=== PATIENT | male | born 1965 | race Hispanic/Latino ===

== ENCOUNTER 2017-12-06 17:42 | Emergency (ER) | payer SELFPAY ==
--- NOTE | 2017-12-06 19:17 | Emergency Department Report ---
Chief Complaint: Urogenital-Male Stated Complaint: GENITAL BLEEDING Time Seen by Provider: 12/06/17 19:05 - HPI History of Present Illness: This is a 52-year-old male with past medical history of hypertension diabetes resented the ER with penile permit drainage, irritation and crusting with slight bleeding 1 month. Patient stated that he's been doing [id number]-[id number] remedies with bacitracin and washing it with soap and water with no relief. Patient denies following up with a primary care doctor. Patient denies any other symptoms. Denies any fever, chills, nausea vomiting chest pressure. Denies any abdominal pain. Patient stated he has normal voiding. Patient denies any drug allergies. - Exam Vital Signs: Vital Signs 12/06/17 17:47 Temperature 98.5 F Pulse Rate 105 H Respiratory 22 Rate Blood Pressure 167/97 O2 Sat by Pulse 96 Oximetry Physical Exam: GENERAL: The patient is a well-developed, well-nourished in no apparent distress. Patient is alert and acting appropriately for age. Alert and oriented 3, no apparent distress, normal gait, atraumatic. ABDOMEN: Soft, nontender, and nondistended. Positive bowel sounds. No hepatosplenomegaly was noted. No guarding or rebound tenderness, negative epigastric bruit. Negative psoas sign, negative bradley sign, negative McBurneys sign Skin: penile erythema, crusting, foul odor with purulent/bleeding in the penile area. MSE screening note: Focused history and physical exam performed. Due to findings the following was ordered: 1- This initial assessment/diagnostic orders/clinical plan/ treatment(s) is/are subject to change based on pt's health status, clinical progression and re- assessment by fellow clinical providers in the ED. Further treatment and workup at subsequent clinical provers discretion. Patient/guardians urged not to elope from ED as their condition may be serious if not clinically assessed and managed. 2-CBC, BMP, lactate acid, blood cultures, UA, gonorrhea chlamydia 3-patient will be transferred to main side ED for further evaluation and treatment by . ED Disposition for MSE Condition: Stable
[2017-12-06 19:40] LABS: Basophils # (Auto) 0.1 K/mm3 (0.0-0.1); Eosinophils # (Auto) 0.3 K/mm3 (0.0-0.4); Eosinophils % (Auto) 3.7 % (0.0-4.3); Hematocrit 48.8 % (35.5-45.6); Hemoglobin 16.6 gm/dl (11.8-15.2); Lymphocytes # (Auto) 2.3 K/mm3 (1.2-5.4); Lymphocytes % (Auto) 24.6 % (13.4-35.0); Mean Corpuscular HGB Conc 34 % (32-34); Mean Corpuscular Hemoglobin 30 pg (28-32); Mean Corpuscular Volume 88 fl (84-94); Monocytes # (Auto) 0.7 K/mm3 (0.0-0.8); Monocytes % (Auto) 7.3 % (0.0-7.3); Platelet Count 235 K/mm3 (140-440); Red Blood Count 5.56 M/mm3 (3.65-5.03); Red Cell Distribution Width 12.9 % (13.2-15.2)
[2017-12-06 19:48] LABS: BUN/Creatinine Ratio 18; Blood Urea Nitrogen 14 mg/dL (9-20); Calcium 9.9 mg/dL (8.4-10.2); Hemolysis Index 4
[2017-12-06 21:12] LABS: Bacteria,Urine 1+ /HPF (Negative); Bilirubin,Urine NEG (Negative); Blood,Urine LG (Negative); Color,Urine Yellow (Yellow); Mucus,Urine 1+ /HPF; Urobilinogen,Urine < 2.0 mg/dL (<2.0)
--- NOTE | 2017-12-06 22:22 | Emergency Department Report ---
ED Male HPI - General Chief complaint: Urogenital-Male Stated complaint: GENITAL BLEEDING Time Seen by Provider: 12/06/17 19:05 Source: patient Mode of arrival: Ambulatory Limitations: No Limitations - History of Present Illness Initial comments: For the past 3 months, he has had a worsening penile mass has continued to get bigger. Today, it started bleeding out of it. So, he came to the ER for evaluation. Denies dysuria, fever, weight loss, testicular pain. He has not had this checked out before today. - Related Data Previous Rx's Medication Instructions Recorded Last Taken Type Cephalexin [Keflex] 500 mg PO Q8HR #15 cap 12/06/17 Unknown Rx Allergies Allergy/AdvReac Type Severity Reaction Status Date / Time No Known Allergies Allergy Unverified 12/06/17 17:47 ED Review of Systems ROS: Stated complaint: GENITAL BLEEDING Other details as noted in HPI Constitutional: denies: chills, fever Eyes: denies: eye pain, eye discharge, vision change ENT: denies: ear pain, throat pain Respiratory: denies: cough, shortness of breath, wheezing Cardiovascular: denies: chest pain, palpitations Endocrine: no symptoms reported Gastrointestinal: denies: abdominal pain, nausea, diarrhea Genitourinary: other (penile mass). denies: urgency, dysuria, hematuria, discharge Musculoskeletal: denies: back pain, joint swelling, arthralgia Skin: denies: rash, lesions Neurological: denies: headache, weakness, paresthesias Psychiatric: denies: anxiety, depression Hematological/Lymphatic: denies: easy bleeding, easy bruising ED Past Medical Hx - Past Medical History Previous Medical History?: Yes Hx Hypertension: Yes Hx Diabetes: Yes - Surgical History Past Surgical History?: Yes Hx Cholecystectomy: Yes - Social History Smoking Status: Never Smoker Substance Use Type: Alcohol - Medications Home Medications: Home Medications Medication Instructions Recorded Confirmed Last Taken Type Cephalexin [Keflex] 500 mg PO Q8HR #15 cap 12/06/17 Unknown Rx ED Physical Exam - General Limitations: No Limitations General appearance: alert, in no apparent distress - Head Head exam: Present: atraumatic, normocephalic - Eye Eye exam: Present: normal appearance - ENT ENT exam: Present: mucous membranes moist - Neck Neck exam: Present: normal inspection - Respiratory Respiratory exam: Present: normal lung sounds bilaterally. Absent: respiratory distress - Cardiovascular Cardiovascular Exam: Present: regular rate, normal rhythm. Absent: systolic murmur, diastolic murmur, rubs, gallop - GI/Abdominal GI/Abdominal exam: Present: soft. Absent: distended, tenderness - Rectal Rectal exam: Present: deferred - exam: Absent: testicular tenderness, scrotal swelling External exam: Present: other (fungating mass seen on the right side of the penis at the 10 o'clock position. It is approximately 3-4 cm in size. Tender to touch. Nondraining.) - Extremities Exam Extremities exam: Present: normal inspection - Back Exam Back exam: Present: normal inspection - Neurological Exam Neurological exam: Present: alert, oriented X3 - Psychiatric Psychiatric exam: Present: normal affect, normal mood - Skin Skin exam: Present: warm, dry, intact, normal color. Absent: rash ED Course Vital Signs 12/06/17 12/06/17 12/06/17 17:47 19:38 22:48 Temperature 98.5 F 98.7 F Pulse Rate 105 H 90 Respiratory 22 15 16 Rate Blood Pressure 167/97 Blood Pressure 146/98 [Left] O2 Sat by Pulse 96 98 Oximetry ED Medical Decision Making - Lab Data Result diagrams: 12/06/17 19:22 12/06/17 19:22 - Medical Decision Making 52-year-old male with past medical history of diabetes or presents with penile mass and bleeding. Vital significant for tachycardia with a heart rate of 105. This resolved on recheck in the room. Labwork unremarkable. Urinalysis shows concern for possible UTI versus contamination from the mass. Patient will be given Keflex for double coverage of skin and urinary floor. Patient has no testicular pain. Low concern for Lavell's. I discussed the case with Dr. Ayala, urology, who recommended that the patient follow-up in his clinic tomorrow morning. I gave the patient his contact information. They be sent home on Keflex. Clear for discharge. Masses concerning for possible viral outbreak versus malignancy. - Differential Diagnosis STD, HPV, HIV, malignancy, Lavell's Critical care attestation.: If time is entered above; I have spent that time in minutes in the direct care of this critically ill patient, excluding procedure time. ED Disposition Clinical Impression: Penile mass Disposition: DC-01 TO HOME OR SELFCARE Is pt being admited?: No Condition: Stable Additional Instructions: Please follow up with your urologist at his clinic tomorrow morning for evaluation of your penile mass. Prescriptions: Cephalexin [Keflex] 500 mg PO Q8HR #15 cap Referrals: PRIMARY CARE, [Primary Care Provider] - 3-5 Days NITA AYALA MD [Staff Physician] - 3-5 Days
[2017-12-06 22:50] VITALS: BP 146/98
== END 2017-12-06 22:48 | disposition home or self-care (01) ==
LOC: ED 17:42
DX: N50.9 Disorder of male genital organs, unspecified (principal); I10 Essential (primary) hypertension; E11.9 Type 2 diabetes mellitus without complications
CPT/HCPCS: 36415; 80048; 81001; 82140; 82962; 85025; 87040; 99283

== ENCOUNTER 2017-12-19 11:11 | Emergency (ER) | payer SELFPAY ==
[2017-12-19 14:28] LABS: Basophils # (Auto) 0.1 K/mm3 (0.0-0.1); Basophils % (Auto) 0.8 % (0.0-1.8); Eosinophils # (Auto) 0.2 K/mm3 (0.0-0.4); Lymphocytes # (Auto) 2.1 K/mm3 (1.2-5.4); Lymphocytes % (Auto) 27.1 % (13.4-35.0); Mean Corpuscular HGB Conc 36 % (32-34); Mean Corpuscular Hemoglobin 31 pg (28-32); Mean Corpuscular Volume 87 fl (84-94); Monocytes # (Auto) 0.5 K/mm3 (0.0-0.8); Monocytes % (Auto) 6.7 % (0.0-7.3); Platelet Count 199 K/mm3 (140-440); Red Blood Count 5.07 M/mm3 (3.65-5.03)
[2017-12-19 14:37] LABS: Hemoglobin 15.9 gm/dl (11.8-15.2)
[2017-12-19 14:39] LABS: Alanine Aminotransferase 66 units/L (7-56); Albumin 4.5 g/dL (3.9-5); BUN/Creatinine Ratio 20; Blood Urea Nitrogen 16 mg/dL (9-20); Hemolysis Index 3
--- NOTE | 2017-12-19 15:19 | Emergency Department Report ---
ED Male HPI - General Chief complaint: Urogenital-Male Stated complaint: PENILE MASS Time Seen by Provider: 12/19/17 13:16 Source: patient Mode of arrival: Ambulatory Limitations: No Limitations - History of Present Illness Initial comments: Patient presents to the emergency department with the complaint of a penile mass that has become worse over the last 2 weeks. Patient stated he first noticed the mass about 4 weeks ago and was seen at this emergency department 2 weeks ago and was given follow-up for urology. Patient contacted Urology the next day and could not afford the follow-up visit. Location: penis Radiation: none Severity scale (0 -10): 4 Quality: sharp Consistency: constant Improves with: none Worsens with: none denies other symptoms - Related Data Previous Rx's Medication Instructions Recorded Last Taken Type Cephalexin [Keflex] 500 mg PO Q8HR #15 cap 12/06/17 Unknown Rx Cephalexin [Keflex] 500 mg PO Q6HR #28 capsule 12/19/17 Unknown Rx traMADol [Ultram] 50 mg PO Q6HR PRN #24 tablet 12/19/17 Unknown Rx Allergies Allergy/AdvReac Type Severity Reaction Status Date / Time No Known Allergies Allergy Unverified 12/06/17 17:47 ED Review of Systems ROS: Stated complaint: PENILE MASS Other details as noted in HPI Comment: All other systems reviewed and negative Constitutional: denies: chills, fever Eyes: denies: eye pain, eye discharge, vision change ENT: denies: ear pain, throat pain Respiratory: denies: cough, shortness of breath, wheezing Cardiovascular: denies: chest pain, palpitations Endocrine: no symptoms reported Gastrointestinal: denies: abdominal pain, nausea, diarrhea Genitourinary: other (penile mass with pain). denies: urgency, dysuria Musculoskeletal: denies: back pain, joint swelling, arthralgia Skin: denies: rash, lesions Neurological: denies: headache, weakness, paresthesias Psychiatric: denies: anxiety, depression Hematological/Lymphatic: denies: easy bleeding, easy bruising ED Past Medical Hx - Past Medical History Previous Medical History?: Yes Hx Hypertension: Yes Hx Diabetes: Yes Additional medical history: PENILE MASS AND BLEEDING - Surgical History Past Surgical History?: Yes Hx Cholecystectomy: Yes - Social History Smoking Status: Current Every Day Smoker Substance Use Type: Alcohol, Prescribed - Medications Home Medications: Home Medications Medication Instructions Recorded Confirmed Last Taken Type Cephalexin [Keflex] 500 mg PO Q8HR #15 cap 12/06/17 Unknown Rx Cephalexin [Keflex] 500 mg PO Q6HR #28 capsule 12/19/17 Unknown Rx traMADol [Ultram] 50 mg PO Q6HR PRN #24 tablet 12/19/17 Unknown Rx ED Physical Exam - General Limitations: No Limitations General appearance: alert, in no apparent distress - Head Head exam: Present: atraumatic, normocephalic - Eye Eye exam: Present: normal appearance, PERRL, EOMI - ENT ENT exam: Present: mucous membranes moist - Neck Neck exam: Present: normal inspection - Respiratory Respiratory exam: Present: normal lung sounds bilaterally. Absent: respiratory distress - Cardiovascular Cardiovascular Exam: Present: regular rate, normal rhythm. Absent: systolic murmur, diastolic murmur, rubs, gallop - GI/Abdominal GI/Abdominal exam: Present: soft, normal bowel sounds. Absent: distended, tenderness, guarding, rebound - Rectal Rectal exam: Present: deferred - exam: Present: other (patient's was removed on exam. Patient has erosion of penile tissue with what appears to be some necrotic tissue as well with purulent drainage that malodorous in nature) - Extremities Exam Extremities exam: Present: normal inspection - Back Exam Back exam: Present: normal inspection - Neurological Exam Neurological exam: Present: alert, oriented X3, CN II-XII intact. Absent: motor sensory deficit - Psychiatric Psychiatric exam: Present: normal affect, normal mood - Skin Skin exam: Present: warm, dry, intact, normal color. Absent: rash ED Course Vital Signs 12/19/17 12:20 Temperature 99.1 F Pulse Rate 95 H Respiratory 18 Rate Blood Pressure 145/96 O2 Sat by Pulse 96 Oximetry ED Medical Decision Making - Lab Data Result diagrams: 12/19/17 13:40 12/19/17 13:40 - Medical Decision Making Spoke to Dr. Beltre our on-call urologist and the patient would discussed in detail. Suggested by Dr. Beltre that the patient be transferred to [facility] transfer lab was contacted at [phone] and still awaiting return call. As the no return phone call from [facility] Contacted [facility] with return call is [phone] and they have no urology coverage Winifred Schwartz contacted at [phone] and return call received from Dr. Bustamante at [phone]. Dr Bustamante was very helpful and professional in the discussion of the patient. Dr. Bustamante was more than willing to accept the patient stated this is mostly outpatient workup At this time I discussed this with the patient and he states he will try to follow up with his urologist that was given to him 2 weeks ago Critical care attestation.: If time is entered above; I have spent that time in minutes in the direct care of this critically ill patient, excluding procedure time. ED Disposition Clinical Impression: Penile mass Disposition: DC- TO HOME OR SELFCARE Is pt being admited?: No Does the pt Need Aspirin: No Condition: Stable Additional Instructions: return if worse Prescriptions: Cephalexin [Keflex] 500 mg PO Q6HR #28 capsule traMADol [Ultram] 50 mg PO Q6HR PRN #24 tablet PRN Reason: Pain Referrals: PRIMARY CARE, [Primary Care Provider] - 3-5 Days ELVIA BELTRE MD [Staff Physician] - 3-5 Days Time of Disposition: 19:08
[2017-12-19] MEDS ORDERED: MORPHINE IV ONE (16:34)
[2017-12-19 16:45] LABS: Bacteria,Urine 1+ /HPF (Negative); Bilirubin,Urine NEG (Negative); Blood,Urine NEG (Negative); Color,Urine Yellow (Yellow); Mucus,Urine 1+ /HPF; Sperm,Urine FEW /HPF (NP); Urobilinogen,Urine < 2.0 mg/dL (<2.0)
[2017-12-19 19:51] VITALS: BP 135/93
== END 2017-12-19 19:50 | disposition home or self-care (01) ==
LOC: ED 11:11
DX: N48.9 Disorder of penis, unspecified (principal); I10 Essential (primary) hypertension; E11.9 Type 2 diabetes mellitus without complications; F17.200 Nicotine dependence, unspecified, uncomplicated; Z90.49 Acquired absence of other specified parts of digestive tract
CPT/HCPCS: 36415; 80053; 81001; 85025; 87040; 96374; 99283; J2270

== ENCOUNTER 2019-12-18 20:25 | Emergency (ER) | payer BC ==
[2019-12-18 20:30] VITALS: BP 137/85
--- NOTE | 2019-12-18 21:07 | Emergency Department Report ---
ED Rash HPI - HPI Chief Complaint: Animal Bite Stated Complaint: SPIDER BITE TO RT HAND Time Seen by Provider: 12/18/19 20:59 Duration: Today Location: Upper Extremities (right hand) Suspected Cause: Insect (spider) Rash Symptoms: Yes Itching, No Facial Swelling, No Tongue/Oral Swelling, No Breathing Difficulties, No Choking Sensation, No Wheezing/Dyspnea, No Peeling, No Blistering, No Fever, No Lightheaded, No Malaise, No Myalgias Severity: mild Other History: This 54-year-old male presents with right hand pain from spider bite that happened around 6 PM tonight. Patient states he saw a small little black spider crawling away after being bit. Patient states tingling pain to the area and some itching around it. He denies fever/chills/nausea vomiting ED Review of Systems ROS: Stated complaint: SPIDER BITE TO RT HAND Other details as noted in HPI Constitutional: denies: chills, fever Eyes: denies: eye pain, eye discharge, vision change ENT: denies: ear pain, throat pain Respiratory: denies: cough, shortness of breath, wheezing Cardiovascular: denies: chest pain, palpitations Endocrine: no symptoms reported Gastrointestinal: denies: abdominal pain, nausea, diarrhea Genitourinary: denies: urgency, dysuria Musculoskeletal: denies: back pain, joint swelling, arthralgia Skin: denies: rash, lesions Neurological: denies: headache, weakness, paresthesias Psychiatric: denies: anxiety, depression Hematological/Lymphatic: denies: easy bleeding, easy bruising ED Past Medical Hx - Past Medical History Hx Hypertension: Yes Hx Diabetes: Yes Additional medical history: PENILE MASS AND BLEEDING - Surgical History Hx Cholecystectomy: Yes - Social History Smoking Status: Never Smoker Substance Use Type: Alcohol - Medications Home Medications: Home Medications Medication Instructions Recorded Confirmed Last Taken Type cephALEXin [Keflex] 500 mg PO Q8HR #15 cap 12/06/17 Unknown Rx cephALEXin [Keflex] 500 mg PO Q6HR #28 capsule 12/19/17 Unknown Rx traMADoL [Ultram] 50 mg PO Q6HR PRN #24 tablet 12/19/17 Unknown Rx cephALEXin [Keflex] 500 mg PO Q12HR #14 cap 12/18/19 Unknown Rx predniSONE [Deltasone] 10 mg PO QDAY #4 tab 12/18/19 Unknown Rx Rash Exam - Exam General: Vital signs noted. No distress. Alert and acting appropriately. HEENT: No Periorbital Edema, No Conjuctival Injection, No Chemosis, No Perioral Edema, No Tongue Edema, No Uvular Edema, No Compromised Airway, No Drooling Lungs: Yes Good Air Exchange (Normal Breath Sounds), No Wheezes, No Ronchi, No Stridor, No Cough, No Labored Respirations, No Retractions, No Use of Accessory Muscles, No Other Abnormal Lung Sounds Heart: Yes Regular, No Murmur Skin: Yes Tenderness, Yes Erythema (small 1 cm erythema cocsitent with insect bite), No Urticarial Rash, No Maculopapular Rash, No Morbilliform rash, No Bulla(e), No Excoriations, No Weeping, No Edema, No Encrustations, No Other Other: Positive: Abdomen Normal, Neurologic Normal, Musculoskeletal Normal ED Course Vital Signs 12/18/19 20:28 Temperature 97.9 F Pulse Rate 95 H Respiratory 20 Rate Blood Pressure 137/85 O2 Sat by Pulse 99 Oximetry ED Medical Decision Making - Medical Decision Making This 54-year-old male who presents with insect bite to the right hand No other symptoms. Discussed with patient antibiotic therapy and can take Motrin as needed for pain. Discussed warm or cold compress daily. Vital signs are normal patient is in no acute distress Critical care attestation.: If time is entered above; I have spent that time in minutes in the direct care of this critically ill patient, excluding procedure time. ED Disposition Clinical Impression: Insect bite, Cellulitis Disposition: DC- TO HOME OR SELFCARE Is pt being admited?: No Does the pt Need Aspirin: No Condition: Stable Instructions: Cellulitis (ED), Insect Bite or Sting (ED) Additional Instructions: Make sure to follow up with the primary care physician as discussed. Take all your medications as you've been prescribed. If you have any worsening symptoms or develop new symptoms please return to ED immediately. Prescriptions: predniSONE [Deltasone] 10 mg PO QDAY #4 tab cephALEXin [Keflex] 500 mg PO Q12HR #14 cap Referrals: [facility] [Outside] - 3-5 Days [facility] [Outside] - 3-5 Days Forms: Work/School Release Form(ED) Time of Disposition: 21:08
== END 2019-12-18 22:11 | disposition home or self-care (01) ==
LOC: ED 20:25
DX: L03.113 Cellulitis of right upper limb (principal); I10 Essential (primary) hypertension; E11.9 Type 2 diabetes mellitus without complications; Z90.49 Acquired absence of other specified parts of digestive tract; Z79.899 Other long term (current) drug therapy; W57.XXXA Bitten or stung by nonvenomous insect and other nonvenomous arthropods, initial encounter; Y93.89 Activity, other specified; Y92.89 Other specified places as the place of occurrence of the external cause; Y99.8 Other external cause status
CPT/HCPCS: 99282